=== PATIENT | female | born 1980 | race Caucasian/White ===

== ENCOUNTER 2022-04-28 06:56 | Emergency (ER) | payer MEDICARE, MEDICAID ==
[~2022-04-28] VITALS: Ht 177 cm; Wt 108.0 kg
[2022-04-28] MEDS ORDERED: ONDANSETRON 4 MG/2 ML (SDV) Z0FRAN IVP ONE (07:15)
[2022-04-28] MEDS ORDERED: LACTATED RINGERS 1,000 ML IV ONE ×2 (07:15→11:00)
[2022-04-28 07:20] LABS: BASOPHILS % (AUTO) 0 % (0-10); EOSINOPHILS # (AUTO) 0.1 10^3/uL (0.0-0.3); EOSINOPHILS % (AUTO) 1 % (0-10); HEMATOCRIT 43 % (35-52); HEMOGLOBIN 14.4 g/dL (11.5-16.0); LYMPHOCYTES # (AUTO) 1.6 10^3/uL (1.0-4.0); LYMPHOCYTES % (AUTO) 9 % (12-44); MEAN CORPUSCULAR HEMOGLOBIN 27 pg (25-34); MEAN CORPUSCULAR HGB CONC 34 g/dL (32-36); MEAN CORPUSCULAR VOLUME 82 fL (80-99); MEAN PLATELET VOLUME 11.1 fL (9.0-12.2); MONOCYTES # (AUTO) 0.6 10^3/uL (0.0-1.0); MONOCYTES % (AUTO) 3 % (0-12); NEUTROPHILS # (AUTO) 15.3 10^3/uL (1.8-7.8); NEUTROPHILS % (AUTO) 86 % (42-75); PLATELET COUNT 374 10^3/uL (130-400); WHITE BLOOD COUNT 17.7 10^3/uL (4.3-11.0)
[2022-04-28 07:34] LABS: ALBUMIN 4.3 GM/DL (3.2-4.5); POTASSIUM 3.5 MMOL/L (3.6-5.0)
[2022-04-28 07:36] LABS: TOTAL PROTEIN 8.4 GM/DL (6.4-8.2)
[2022-04-28 07:38] LABS: BILIRUBIN,TOTAL 0.4 MG/DL (0.1-1.0)
[2022-04-28 07:40] LABS: CREATININE SERUM 0.77 MG/DL (0.60-1.30)
[2022-04-28] MEDS ORDERED: PANTOPRAZOLE 40 MG (PROTONIX) VIAL IV ONE (07:45)
[2022-04-28] MEDS ORDERED: PROMETHAZINE INJ 25 MG/ML (PHENERGAN) AMP IVP ONE (07:45)
--- NOTE | 2022-04-28 07:51 | ED GI ---
General Chief Complaint: Abdominal/GI Problems Stated Complaint: NAUSEA,VOMITING Nursing Triage Note: ARRIVED VIA AMB TO ROOM 07 WITH N/V/D . PT HAS BEEN TAKING ZOFRAN AND PHENERGAN BUT CAN NOT KEEP IT DOWN. PT STATES HER STOOLS AND VOMIT ARE BLACK. RECENTLY DX WITH GASTROPARESIS A COUPLE OF WEEKS AGO AND A SCOPE WAS DONE AT [facility]. HAS AN APPT WITH A [place]STRO DR [place] . Source of Information: Patient, Family Exam Limitations: No Limitations History of Present Illness Date Seen by Provider: Apr 28, 2022 Time Seen by Provider: 07:13 Initial Comments This 41-year-old woman presents to the emergency room with 2 days of abdominal pain and vomiting. She is here with a male significant other. She has not been to this facility before and has a home address of [place], [place]. She seems emotionally and mentally distraught and is a poor historian regarding some aspects of her medical history, in particular the timing of events or work-ups. She also is unwilling to give us her surgical history. She denies any fever but has had hot and cold flashes associated with vomiting. She reports having blood in her emesis but not noting any blood in her bowel movements. She had a hard difficult stool this morning. She reports having a work-up performed at [facility] and having a positive gastric emptying study suggesting gastroparesis. She has a pending GI consultation at [facility]. She has had recurrent problems with abdominal pain and vomiting over the past year. This particular episode has been intense for the past 2 days. She has a medical marijuana card for the [facility], and her last use was 2 days ago. Patient is adamant that her GI issues are not caused by marijuana but cannot give a good reason for that assertion except that she quit marijuana for 1 week and continued to have symptoms. 08:54 - Patient is now calmer and able to provide a little better history. She presently lives in [place], [place] but is here in [place] visiting her boyfriend who lives here. She normally receives her health care at [facility] in [place] where she reportedly has been admitted 3 times in recent months and was last discharged about 3 weeks ago. She states upper endoscopy was performed during one of her recent admissions. She reports the only finding on endoscopy was "a lot of bile." Her primary care provider is Nadege Cole in [place]. She lists the following medications as her current prescriptions: Reglan Promethazine Zofran sublingual Dexilant Latuda Erythromycin She has not noted any correlation implicating any of these medications with her symptom onset. 11:16 - Patient provides further history stating that she has actually had problems with abdominal symptoms for several years. She reports abstaining from marijuana for 2 years while she was receiving pain management and did not have any relief of the GI symptoms while abstaining from marijuana for 2 years. She reports she has a referral pending with a inspector and unloader at [facility] in October 2022, and she also states a pending gastric stimulator implant. Allergies and Home Medications Allergies Coded Allergies: clindamycin (Verified Allergy, Unknown, 04/28/22) prochlorperazine (Verified Allergy, Unknown, 04/28/22) Patient Home Medication List Home Medication List Reviewed: Yes Famotidine (Pepcid) 20 Mg Tablet, 20 MG PO BID Prescribed by: JESS HSIEH on 04/28/22 1130 Scopolamine (Transderm-Scop) 1 Mg/3 Day Patch.td72, 1 EACH TD Q72H PRN for NAUSEA/VOMITING-3RD LINE Prescribed by: JESS HSIEH on 04/28/22 1130 Review of Systems Review of Systems Constitutional: see HPI EENTM: No Symptoms Reported Respiratory: No Symptoms Reported Cardiovascular: No Symptoms Reported Gastrointestinal: See HPI Genitourinary: No Symptoms Reported Musculoskeletal: no symptoms reported Skin: no symptoms reported Psychiatric/Neurological: See HPI Endocrine: No Symptoms Reported Hematologic/Lymphatic: No Symptoms Reported Past Vaebpih-Rzeafg-Hdqmnx Hx Patient Social History Tobacco Use?: Yes Smokeless Tobacco Frequency: Current Everyday User Substance use?: Yes Substance type: Marijuana Substance frequency: Daily Alcohol Use?: No Immunizations Up To Date Second COVID19 Vaccination Yared: UNKNOWN 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 Carbon 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: UNKNOWN Past Medical History Surgeries: Yes (Cervical cryotherapy) Abdominal (Hiatal hernia), Appendectomy, Gallbladder, Orthopedic (Ankle) Respiratory: No Cardiac: No Neurological: No : No Genitourinary: No Gastrointestinal: Yes (Stated history of "gastroparesis") Musculoskeletal: No Endocrine: No HEENT: No Cancer: No Psychosocial: Yes Bipolar Integumentary: No Physical Exam Vital Signs Vital Signs - First Documented 04/28/22 04/28/22 07:00 07:50 Temp 37.7 Pulse 56 Resp 16 B/P (MAP) 128/92 (104) Pulse Ox 97 O2 Delivery Room Air O2 Flow Rate 2.00 Capillary Refill : Less Than 3 Seconds Height/Weight/BMI Height: '" Weight: lbs. oz. kg; 34.00 BMI Method: General Appearance: WD/WN, moderate distress, obese HEENT: PERRL/EOMI, normal ENT inspection Neck: normal inspection Respiratory: lungs clear, normal breath sounds, no respiratory distress Cardiovascular: regular rate, rhythm, no edema, no murmur Gastrointestinal: normal bowel sounds, soft, tenderness (Left abdomen) Extremities: normal inspection, no pedal edema Neurologic/Psychiatric: no motor/sensory deficits, alert, other (Anxious, distracted, confused historian at times) Skin: normal color, warm/dry Progress/Results/Core Measures Results/Orders Lab Results Laboratory Tests Test 04/28/22 07:10 04/28/22 07:41 04/28/22 07:51 Range/Units White Blood Count 17.7 H 4.3-11.0 10^3/uL Red Blood Count 5.25 H 3.80-5.11 10^6/uL Hemoglobin 14.4 11.5-16.0 g/dL Hematocrit 43 35-52 % Mean Corpuscular Volume 82 80-99 fL Mean Corpuscular Hemoglobin 27 25-34 pg Mean Corpuscular Hemoglobin Concent 34 32-36 g/dL Red Cell Distribution Width 17.2 H 10.0-14.5 % Platelet Count 374 130-400 10^3/uL Mean Platelet Volume 11.1 9.0-12.2 fL Immature Granulocyte % (Auto) 1 % Neutrophils (%) (Auto) 86 H 42-75 % Lymphocytes (%) (Auto) 9 L 12-44 % Monocytes (%) (Auto) 3 0-12 % Eosinophils (%) (Auto) 1 0-10 % Basophils (%) (Auto) 0 0-10 % Neutrophils # (Auto) 15.3 H 1.8-7.8 10^3/uL Lymphocytes # (Auto) 1.6 1.0-4.0 10^3/uL Monocytes # (Auto) 0.6 0.0-1.0 10^3/uL Eosinophils # (Auto) 0.1 0.0-0.3 10^3/uL Basophils # (Auto) 0.0 0.0-0.1 10^3/uL Immature Granulocyte # (Auto) 0.1 0.0-0.1 10^3/uL Neutrophils % (Manual) 90 % Lymphocytes % (Manual) 8 % Monocytes % (Manual) 1 % Eosinophils % (Manual) 0 % Basophils % (Manual) 0 % Band Neutrophils 1 % Anisocytosis SLIGHT Target Cells SLIGHT Sodium Level 137 135-145 MMOL/L Potassium Level 3.5 L 3.6-5.0 MMOL/L Chloride Level 101 98-107 MMOL/L Carbon Dioxide Level 21 21-32 MMOL/L Anion Gap 15 H 5-14 MMOL/L Blood Urea Nitrogen 9 7-18 MG/DL Creatinine 0.77 0.60-1.30 MG/DL Estimat Glomerular Filtration Rate 99 BUN/Creatinine Ratio 12 Glucose Level 165 H 70-105 MG/DL Calcium Level 10.0 8.5-10.1 MG/DL Corrected Calcium 9.8 8.5-10.1 MG/DL Total Bilirubin 0.4 0.1-1.0 MG/DL Aspartate Amino Transf (AST/SGOT) 12 5-34 U/L Alanine Aminotransferase (ALT/SGPT) 21 0-55 U/L Alkaline Phosphatase 77 40-136 U/L Total Protein 8.4 H 6.4-8.2 GM/DL Albumin 4.3 3.2-4.5 GM/DL Lipase 10 8-78 U/L Serum Test, Qualitative NEGATIVE NEGATIVE Gastric Fluid Occult Blood POSITIVE H NEGATIVE Magnesium Level 1.6 1.6-2.4 MG/DL C-Reactive Protein High Sensitivity 0.96 H 0.00-0.50 MG/DL Serum Alcohol < 10 <10 MG/DL My Orders Orders - JESS JUNG MD Ondansetron Injection (Zofran Injectio (04/28/22 07:15) Cbc With Automated Diff (04/28/22 07:12) Comprehensive Metabolic Panel (04/28/22 07:12) Lipase (04/28/22 07:12) Ed Iv/Invasive Line Start (04/28/22 07:12) Lactated Ringers (Lr 1000 Ml Iv Solution (04/28/22 07:15) Manual Differential (04/28/22 07:10) Occult Blood,Gastric Fluid (04/28/22 07:40) Pantoprazole Injection (Protonix Injecti (04/28/22 07:45) Promethazine Injection (Phenergan Injec (04/28/22 07:45) Hs C Reactive Protein (04/28/22 07:40) Hcg,Qualitative Serum (04/28/22 07:40) Magnesium (04/28/22 07:40) Alcohol (04/28/22 07:50) Ekg Tracing (04/28/22 08:53) Droperidol Inj (Ed Only) (Inapsine Inj ( (04/28/22 09:15) Abdomen, Flat & Upright/Decub (04/28/22 09:13) Lactated Ringers (Lr 1000 Ml Iv Solution (04/28/22 11:00) Scopolamine Patch (Transderm-Scop Patch) (04/28/22 11:30) Medications Given in ED Current Medications Medications Dose Ordered Sig/Brandon Route Start Time Stop Time Status Last Admin Dose Admin Droperidol 0.625 mg ONCE ONCE IV 04/28/22 09:15 04/28/22 09:16 DC 04/28/22 09:23 0.625 MG Lactated Ringer's 1,000 ml @ 0 mls/hr Q0M ONCE IV 04/28/22 11:00 04/28/22 11:01 DC 04/28/22 11:09 1,000 MLS/HR Scopolamine 1.5 mg ONCE ONCE TD 04/28/22 11:30 04/28/22 11:31 DC 04/28/22 11:32 1.5 MG Vital Signs/I&O 04/28/22 04/28/22 04/28/22 07:00 07:50 12:20 Temp 37.7 Pulse 56 59 Resp 16 16 B/P (MAP) 128/92 (104) 136/98 Pulse Ox 97 88 98 O2 Delivery Room Air Nasal Cannula Room Air O2 Flow Rate 2.00 Blood Pressure Mean: 104 Progress Progress Note #1: Time: 07:59 Progress Note Patient was interviewed and examined. She is being treated with IV fluids, Zofran, Phenergan, and Protonix. Emesis was sent for gastric occult blood testing. Labs are pending. Progress Note #2: Time: 08:57 Progress Note Patient is [place] now and able to provide additional history. She is still complaining of refractory nausea. I inquired if she had ever received droperidol. She does not recall receiving it to her knowledge. She has received Haldol which she said was not effective. If not contraindicated by EKG findings, I will order droperidol. Progress Note #3: Time: 11:17 Progress Note Patient is now tolerating ice chips and stated droperidol helped her significantly. Vital signs are stable. She is receiving a second liter of IV fluid and discharge is anticipated. Scopolamine patch is being applied for longer acting relief. Initial ECG Impression Date: Apr 28, 2022 Initial ECG Impression Time: 09:00 Initial ECG Rate: 54 Initial ECG Rhythm: S.Anders Comment Sinus rhythm with borderline irregular bradycardia. No ST elevation or depression. No abnormal intervals or axis deviation. Diagnostic Imaging Diagonstic Imaging: Xray Plain Films/CT/US/NM/MRI: abdomen, pelvis Comments Abdominal x-rays viewed by me and report reviewed. See report below: NAME: KIANA PATEL [facility] REC#: [id number] PT STATUS: REG ER : 1980 PHYSICIAN: JESS JUNG MD ADMIT DATE: 04/28/22/ER Signed Date of Exam:04/28/22 ABDOMEN, FLAT & UPRIGHT/DECUB REASON FOR EXAM: Abdominal pain. Nausea and vomiting. COMPARISON: None TECHNIQUE: 3 views of the abdomen FINDINGS: The bowel gas pattern is nondistended. No large collection of free intraperitoneal air is seen. Scattered small amounts of gas and fecal material are present in the colon. No abnormal extraosseous calcifications are present. The osseous structures are age-appropriate. The gallbladder surgically absent. Essure clips are seen in the pelvis. IMPRESSION: No evidence of bowel obstruction or large collection of free intraperitoneal air. Dictated by: Dictated on workstation # [id number] Dict: 04/28/22951 Trans: 04/28/221002 [facility] [id number] Interpreted by: COLT BROOKS DO Electronically signed by: COLT BROOKS DO 04/28/22 1003 Departure Impression Primary Impression: Left sided abdominal pain Additional Impressions: Nausea & vomiting Qualified Codes: R11.2 - Nausea with vomiting, unspecified Hematemesis Qualified Codes: K92.0 - Hematemesis Disposition: 01 HOME, SELF-CARE Condition: Improved Departure-Patient Inst. Decision time for Depature: 11:23 Referrals: NO,LOCAL PHYSICIAN (PCP/Family) Primary Care Physician Patient Instructions: Abdominal Pain, Adult ED, Nausea and Vomiting, Adult Add. Discharge Instructions: Adhere to a noncarbonated clear liquid diet for the next 24 hours. Then gradually advance your diet with small quantities of bland food as tolerated. Add Pepcid (famotidine) to your medication management as prescribed. Discussed this with your inspector and unloader and your primary care provider soon as you are able. Continue using sublingual Zofran for primary nausea control. You may add the scopolamine patch as prescribed for added and nausea relief. Avoid the following: Eating large meals, eating close to bedtime, caffeine, carbonation, chocolate, citrus fruits and juices, tomato products, mints, tobacco, alcohol, marijuana products, fatty/greasy foods, NSAID medications such as ibuprofen or naproxen, spicy foods, or anything else you know irritates your stomach. Return to care if you have worsening symptoms despite following these instructions. All discharge instructions reviewed with patient and/or family. Voiced understanding. Scripts Famotidine (Pepcid) 20 Mg Tablet 20 MG PO BID, #60 TAB Prov: JESS JUNG MD 04/28/22 Scopolamine (Transderm-Scop) 1 Mg/3 Day Patch.td72 1 EACH TD Q72H PRN for NAUSEA/VOMITING-3RD LINE, #2 PATCH Prov: JESS JUNG MD 04/28/22 JESS JUNG MD Apr 28, 2022 07:51
[2022-04-28 07:52] LABS: OCCULT BLOOD,GASTRIC FLUID POSITIVE (NEGATIVE)
[2022-04-28 08:09] LABS: BAND NEUTROPHILS 1 %; BASOPHILS % (MANUAL) 0 %; EOSINOPHILS % (MANUAL) 0 %; LYMPHOCYTES % (MANUAL) 8 %; MONOCYTES % (MANUAL) 1 %; NEUTROPHILS % (MANUAL) 90 %
[2022-04-28 08:10] LABS: ANISOCYTOSIS SLIGHT; TARGET CELLS SLIGHT
[2022-04-28 08:22] LABS: MAGNESIUM 1.6 MG/DL (1.6-2.4)
[2022-04-28] MEDS ORDERED: DROPERIDOL 5 MG/2 ML (INAPSINE) ED ONLY! IV ONE (09:15)
--- NOTE | 2022-04-28 09:57 | Diagnostic Imaging Report ---
REASON FOR EXAM: Abdominal pain. Nausea and vomiting. COMPARISON: None TECHNIQUE: 3 views of the abdomen FINDINGS: The bowel gas pattern is nondistended. No large collection of free intraperitoneal air is seen. Scattered small amounts of gas and fecal material are present in the colon. No abnormal extraosseous calcifications are present. The osseous structures are age-appropriate. The gallbladder surgically absent. Essure clips are seen in the pelvis. IMPRESSION: No evidence of bowel obstruction or large collection of free intraperitoneal air. Dictated by: Dictated on workstation # [id number]
[2022-04-28] MEDS ORDERED: FAMO-119 PO (11:30)
[2022-04-28] MEDS ORDERED: SCOPOLAMINE 1.5 MG (TRANSDERM-SCOP) PATCH TD ONE (11:30)
[2022-04-28] MEDS ORDERED: SCOP1PAT10 TD (11:30)
[2022-04-28 12:20] VITALS: BP 136/98
== END 2022-04-28 12:20 | disposition home or self-care (01) ==
LOC: ER 07:01
DX: K92.0 Hematemesis (principal); R10.9 Unspecified abdominal pain; E66.9 Obesity, unspecified; F17.290 Nicotine dependence, other tobacco product, uncomplicated; Z90.49 Acquired absence of other specified parts of digestive tract; Z68.34 Body mass index [BMI] 34.0-34.9, adult
CPT/HCPCS: 74019; 80053; 82271; 83690; 83735; 84703; 85007; 85027; 86141; 93005; 99284; G0480; 36415; 80320

== ENCOUNTER 2022-05-03 06:42 | Emergency (ER) | payer MEDICARE, MEDICAID ==
[~2022-05-03] VITALS: Ht 177.8 cm; Wt 108.9 kg
[~2022-05-03 06:42] MED LIST: FAMO-119 PO; SCOP1PAT10 TD
--- NOTE | 2022-05-03 06:58 | ED GI ---
General Chief Complaint: Abdominal/GI Problems Stated Complaint: VOMITING Source of Information: Patient Exam Limitations: No Limitations History of Present Illness Date Seen by Provider: May 03, 2022 Time Seen by Provider: 06:52 Initial Comments Patient is a 41-year-old female who presents to the emergency room with a chief complaint of severe nausea and vomiting, epigastric discomfort. She states she has a history of gastroparesis. Her mother is with her and states that she has had this problem developing over the last 3 months with multiple visits to the emergency department for treatment. She was seen here in the ED 5 days ago. She was given scopolamine patches. Mother states that these worked well but when they exchange the patch she started having nausea and vomiting again. She denies fevers or chills. She complains of extreme nausea. She states she has had a history of appendectomy and cholecystectomy. Denies black or bloody stools. States she did urinate this morning, no dysuria. Mother states that she has been "heaving" every 15 minutes since 1am. Mother also states that she does have a medical marijuana card. She did smoke marijuana yesterday. I educated the patient that marijuana can sometimes exacerbate nausea and vomiting. All other review of systems reviewed and negative except as stated. Timing/Duration: Constant Severity/Quality: Severe, Cramping Location: Epigastric Radiation: No Radiation Activities at Onset: None Modifying Factors: Worsens With Movement Associated Symptoms: Heartburn, Nausea/Vomiting Allergies and Home Medications Allergies Coded Allergies: clindamycin (Verified Allergy, Unknown, 04/28/22) prochlorperazine (Verified Allergy, Unknown, 04/28/22) Patient Home Medication List Home Medication List Reviewed: Yes Famotidine (Pepcid) 20 Mg Tablet, 20 MG PO BID Prescribed by: JESS HSIEH on 04/28/22 1130 Scopolamine (Transderm-Scop) 1 Mg/3 Day Patch.td72, 1 EACH TD Q72H PRN for NAUSEA/VOMITING-3RD LINE Prescribed by: JESS HSIEH on 04/28/22 1130 Review of Systems Review of Systems Constitutional: see HPI, malaise EENTM: No Symptoms Reported Respiratory: No Symptoms Reported Cardiovascular: No Symptoms Reported Gastrointestinal: Abdominal Pain, Nausea, Vomiting Genitourinary: No Symptoms Reported Musculoskeletal: no symptoms reported Skin: no symptoms reported Psychiatric/Neurological: Anxiety All Other Systems Reviewed Negative Unless Noted: Yes Past Xtnqfie-Kqhhmy-Bbyxdb Hx Patient Social History Tobacco Use?: No Use of E-Cig and/or Vaping dev: Yes E-Cig or Vaping type used: Nicotine Substance use?: Yes Substance type: Marijuana Additional substance use comme: Pt reports a medical marijuana card Alcohol Use?: No Pt feels they are or have been: No Immunizations Up To Date Second COVID19 Vaccination Yared: UNKNOWN Past Medical History Surgery/Hospitalization HX: GI scopes, Gastroparesis, Hiatal hernia Surgeries: Yes (Cervical cryotherapy) Abdominal, Appendectomy, Gallbladder, Orthopedic Respiratory: No Cardiac: No Neurological: No Genitourinary: No Gastrointestinal: Yes (Stated history of "gastroparesis") Musculoskeletal: No Endocrine: No HEENT: No Cancer: No Psychosocial: Yes Bipolar Integumentary: No Physical Exam Vital Signs Vital Signs - First Documented 05/03/22 06:51 Temp 36.9 Pulse 53 Resp 24 B/P (MAP) 161/121 (134) Pulse Ox 98 O2 Delivery Room Air Capillary Refill : Height/Weight/BMI Height: '" Weight: lbs. oz. kg; 34.00 BMI Method: General Appearance: WD/WN, moderate distress HEENT: PERRL/EOMI, pharynx normal Neck: supple Respiratory: lungs clear, normal breath sounds, no respiratory distress, no accessory muscle use Cardiovascular: regular rate, rhythm, no murmur Gastrointestinal: soft, tenderness (Mild epigastric tenderness) Extremities: normal range of motion, non-tender, normal inspection, normal capillary refill Neurologic/Psychiatric: alert, other (Appears anxious, distressed; disheveled with vomit on the front of her shirt) Skin: pallor, other (Clammy/diaphoretic) Progress/Results/Core Measures Results/Orders Lab Results Laboratory Tests Test 05/03/22 06:57 Range/Units White Blood Count 14.3 H 4.3-11.0 10^3/uL Red Blood Count 5.34 H 3.80-5.11 10^6/uL Hemoglobin 14.7 11.5-16.0 g/dL Hematocrit 45 35-52 % Mean Corpuscular Volume 84 80-99 fL Mean Corpuscular Hemoglobin 28 25-34 pg Mean Corpuscular Hemoglobin Concent 33 32-36 g/dL Red Cell Distribution Width 17.0 H 10.0-14.5 % Platelet Count 339 130-400 10^3/uL Mean Platelet Volume 11.6 9.0-12.2 fL Immature Granulocyte % (Auto) 1 % Neutrophils (%) (Auto) 82 H 42-75 % Lymphocytes (%) (Auto) 14 12-44 % Monocytes (%) (Auto) 3 0-12 % Eosinophils (%) (Auto) 0 0-10 % Basophils (%) (Auto) 0 0-10 % Neutrophils # (Auto) 11.7 H 1.8-7.8 10^3/uL Lymphocytes # (Auto) 2.0 1.0-4.0 10^3/uL Monocytes # (Auto) 0.5 0.0-1.0 10^3/uL Eosinophils # (Auto) 0.1 0.0-0.3 10^3/uL Basophils # (Auto) 0.0 0.0-0.1 10^3/uL Immature Granulocyte # (Auto) 0.1 0.0-0.1 10^3/uL Neutrophils % (Manual) 81 % Lymphocytes % (Manual) 16 % Monocytes % (Manual) 3 % Toxic Granulation 1+ Anisocytosis SLIGHT Microcytosis SLIGHT Sodium Level 139 135-145 MMOL/L Potassium Level 4.0 3.6-5.0 MMOL/L Chloride Level 105 98-107 MMOL/L Carbon Dioxide Level 20 L 21-32 MMOL/L Anion Gap 14 5-14 MMOL/L Blood Urea Nitrogen 6 L 7-18 MG/DL Creatinine 0.77 0.60-1.30 MG/DL Estimat Glomerular Filtration Rate 99 BUN/Creatinine Ratio 8 Glucose Level 138 H 70-105 MG/DL Calcium Level 9.7 8.5-10.1 MG/DL Corrected Calcium 9.6 8.5-10.1 MG/DL Magnesium Level 1.9 1.6-2.4 MG/DL Total Bilirubin 0.7 0.1-1.0 MG/DL Aspartate Amino Transf (AST/SGOT) 18 5-34 U/L Alanine Aminotransferase (ALT/SGPT) 20 0-55 U/L Alkaline Phosphatase 83 40-136 U/L Total Protein 8.1 6.4-8.2 GM/DL Albumin 4.1 3.2-4.5 GM/DL Lipase 13 8-78 U/L Serum Test, Qualitative NEGATIVE NEGATIVE My Orders Orders - NORMAN HARRELL MD Ed Iv/Invasive Line Start (05/03/22 06:58) Cbc With Automated Diff (05/03/22 06:58) Comprehensive Metabolic Panel (05/03/22 06:58) Lipase (05/03/22 06:58) Hcg,Qualitative Serum (05/03/22 06:58) Lactated Ringers (Lr 1000 Ml Iv Solution (05/03/22 07:00) Droperidol Inj (Ed Only) (Inapsine Inj ( (05/03/22 07:00) Diphenhydramine Injection (Benadryl Inje (05/03/22 07:00) Ekg Tracing (05/03/22 06:58) Magnesium (05/03/22 06:58) Manual Differential (05/03/22 06:57) Lactated Ringers (Lr 1000 Ml Iv Solution (05/03/22 08:15) Promethazine Injection (Phenergan Injec (05/03/22 08:15) Pantoprazole Injection (Protonix Injecti (05/03/22 08:15) Lorazepam Tablet (Ativan Tablet) (05/03/22 09:44) Dicyclomine Injection (Bentyl Injection) (05/03/22 09:48) Medications Given in ED Vital Signs/I&O 05/03/22 05/03/22 06:51 10:29 Temp 36.9 36.9 Pulse 53 53 Resp 24 24 B/P (MAP) 161/121 (134) 129/80 Pulse Ox 98 98 O2 Delivery Room Air Room Air Progress Progress Note : Time: 09:33 Progress Note Patient had been resting comfortably when I went in the room at last check - for about an hour. No loud retching or issues. Then when I walked in, she stated she felt no better at all. Became up set when I indicated she did not have any findings leading us to believe she would need to be hospitalized, stating "if you send me home, I will just turn around and come right back." Mother states that she has had conversations with her about stopping THC, but the patient argues. She also tells me the patient had a "Mcchicken sandwich" yesterday before the onset of symptoms earlier this morning. At this point patient has had droperidol and benadryl; as well as 25mg of Phenergan in a 2nd liter of IVF (LR). Her labs are reassuring - no hypokalemia. WBC are decreased from a few days ago. SHe has no point tenderness in her abdomen. No fever. No clincal or objective findings concerning for sepsis. I think at this point I will give her some sublingual ativan and d/c to home. I have advised both the patient and her mother, we do not have GI capabilities here at [facility]. Mom states the patient has been referred to , but her appointment is not until October of 2022. Return precautions provided. Initial ECG Impression Date: May 03, 2022 Initial ECG Impression Time: 07:26 Initial ECG Rate: 44 Initial ECG Rhythm: S.Anders Initial ECG Intervals: Normal Initial ECG Impression: Normal Initial ECG Comparisson: Unchanged Departure Impression Primary Impression: Nausea and vomiting Qualified Codes: R11.2 - Nausea with vomiting, unspecified Additional Impressions: Tetrahydrocannabinol (THC) dependence gastroparesis by patient history Disposition: 01 HOME, SELF-CARE Condition: Stable Departure-Patient Inst. Decision time for Depature: 09:48 Referrals: NO,LOCAL PHYSICIAN (PCP/Family) Primary Care Physician Add. Discharge Instructions: You should follow up with Dr Presley regularly until you have your appointment in , as well as your family doctor. Small frequent bland meals throughout the day. Target 6 small meals scattered throughout the day. Drink plenty of fluids to stay well hydrated. (you are actually not dehydrated now). Continue the nausea medications you have been prescribed at home. Stop smoking marijuana - this will help your nausea and vomiting not be so severe. Return to the Emergency Department for fever with these worsening symptoms, or any other new, emergent, concerning complaints. All discharge instructions reviewed with patient and/or family. Voiced understanding. NORMAN HARRELL MD May 03, 2022 06:58
[2022-05-03] MEDS ORDERED: DROPERIDOL 5 MG/2 ML (INAPSINE) ED ONLY! IV ONE (07:00)
[2022-05-03] MEDS ORDERED: diphenhydrAMINE 50 MG/ML INJ (BENADRYL) IVP ONE (07:00)
[2022-05-03 07:08] LABS: BASOPHILS % (AUTO) 0 % (0-10); EOSINOPHILS # (AUTO) 0.1 10^3/uL (0.0-0.3); EOSINOPHILS % (AUTO) 0 % (0-10); HEMATOCRIT 45 % (35-52); HEMOGLOBIN 14.7 g/dL (11.5-16.0); LYMPHOCYTES % (AUTO) 14 % (12-44); MEAN CORPUSCULAR HEMOGLOBIN 28 pg (25-34); MEAN CORPUSCULAR HGB CONC 33 g/dL (32-36); MEAN CORPUSCULAR VOLUME 84 fL (80-99); MEAN PLATELET VOLUME 11.6 fL (9.0-12.2); MONOCYTES # (AUTO) 0.5 10^3/uL (0.0-1.0); MONOCYTES % (AUTO) 3 % (0-12); NEUTROPHILS # (AUTO) 11.7 10^3/uL (1.8-7.8); NEUTROPHILS % (AUTO) 82 % (42-75); PLATELET COUNT 339 10^3/uL (130-400); WHITE BLOOD COUNT 14.3 10^3/uL (4.3-11.0)
[2022-05-03 07:15] LABS: ALBUMIN 4.1 GM/DL (3.2-4.5)
[2022-05-03 07:17] LABS: CALCIUM 9.7 MG/DL (8.5-10.1)
[2022-05-03 07:18] LABS: TOTAL PROTEIN 8.1 GM/DL (6.4-8.2)
[2022-05-03] MEDS: LACTATED RINGERS 1,000 ML IV SCH ×5 (07:18→08:23)
[2022-05-03 07:20] LABS: BILIRUBIN,TOTAL 0.7 MG/DL (0.1-1.0)
[2022-05-03 07:22] LABS: CREATININE SERUM 0.77 MG/DL (0.60-1.30)
[2022-05-03 07:24] LABS: MAGNESIUM 1.9 MG/DL (1.6-2.4)
[2022-05-03 07:43] LABS: ANISOCYTOSIS SLIGHT; LYMPHOCYTES % (MANUAL) 16 %; MICROCYTOSIS SLIGHT; MONOCYTES % (MANUAL) 3 %; NEUTROPHILS % (MANUAL) 81 %; TOXIC GRANULATION/VACUOLAZATIO 1+
[2022-05-03] MEDS ORDERED: PANTOPRAZOLE 40 MG (PROTONIX) VIAL IV ONE (08:15)
[2022-05-03] MEDS ORDERED: PROMETHAZINE INJ 25 MG/ML (PHENERGAN) AMP IVP ONE (08:15)
[2022-05-03] MEDS ORDERED: LORazepam 0.5 MG (ATIVAN) TABLET SL STA (09:44)
[2022-05-03] MEDS ORDERED: DICYCLOMINE 10 MG/ML (BENTYL) 2 ML AMP IM STA (09:48)
[2022-05-03 10:29] VITALS: BP 129/80
== END 2022-05-03 10:29 | disposition home or self-care (01) ==
LOC: EDUNIT# 06:42 → ER 06:44
DX: K31.84 Gastroparesis (principal); F12.20 Cannabis dependence, uncomplicated; F17.290 Nicotine dependence, other tobacco product, uncomplicated; Z90.49 Acquired absence of other specified parts of digestive tract; Z28.310 Unvaccinated for COVID-19
CPT/HCPCS: 36415; 80053; 83690; 83735; 84703; 85007; 85027; 93005; 96361; 96372; 96374; 96375

== ENCOUNTER 2022-08-06 22:44 | Emergency (ER) | payer MEDICARE, MEDICAID ==
[~2022-08-06] VITALS: Ht 178 cm; Wt 118.0 kg
[2022-08-06] MEDS ORDERED: ONDANSETRON 4 MG/2 ML (SDV) Z0FRAN IVP ONE (23:00)
[2022-08-06] MEDS ORDERED: LACTATED RINGERS 1,000 ML IV ONE (23:00)
[2022-08-06 23:03] LABS: BASOPHILS % (AUTO) 0 % (0-10); EOSINOPHILS % (AUTO) 0 % (0-10); HEMATOCRIT 41 % (35-52); HEMOGLOBIN 13.9 g/dL (11.5-16.0); LYMPHOCYTES # (AUTO) 2.2 10^3/uL (1.0-4.0); LYMPHOCYTES % (AUTO) 13 % (12-44); MEAN CORPUSCULAR HEMOGLOBIN 28 pg (25-34); MEAN CORPUSCULAR HGB CONC 34 g/dL (32-36); MEAN CORPUSCULAR VOLUME 82 fL (80-99); MEAN PLATELET VOLUME 11.1 fL (9.0-12.2); MONOCYTES # (AUTO) 1.1 10^3/uL (0.0-1.0); MONOCYTES % (AUTO) 6 % (0-12); NEUTROPHILS # (AUTO) 13.3 10^3/uL (1.8-7.8); NEUTROPHILS % (AUTO) 80 % (42-75); PLATELET COUNT 421 10^3/uL (130-400); WHITE BLOOD COUNT 16.6 10^3/uL (4.3-11.0)
--- NOTE | 2022-08-06 23:03 | ED GI ---
General Chief Complaint: Abdominal/GI Problems Stated Complaint: NAUSEA, VOMITING Nursing Triage Note: PT AMB TO ED BY POV WITH C/O ABD PAIN AND N/V/D X 24 HRS. PT REPORTS SHE HAS TAKEN ZOFRAN AND PROMETHAZINE WITH NO RELIEF. DENIES FEVER. PT HAS HX GASTROPARESIS. Source of Information: Patient History of Present Illness Date Seen by Provider: Aug 06, 2022 Time Seen by Provider: 22:48 Initial Comments PT ARRIVES VIA POV WITH BOYFRIEND C/O NAUSEA/VOMITING/DIARRHEA AND ABDOMINAL PAIN FOR THE LAST 24 HOURS THIS IS A CHRONIC PROBLEM AND HAS BEEN DX WITH GASTROPARESIS, ACCORDING TO FARTUN PEGUERO. PT STATES SHE HAS "VOMITED AND HAD DIARRHEA EVERY HOUR FOR THE LAST 24 HOURS" --THEN ON QUESTIONING ABOUT HOW MANY TIMES SHE HAS VOMITED OR HAD DIARRHEA, SHE REPORTS SHE HAS VOMITED 6 TIMES, AND HAD DIARRHEA TWICE. SHE STATES HER STOOLS WERE BLOODY. 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 SHE DENIES ANY MEDICATION CHANGES, BUT SHE HAS NOT BEEN TAKING HER TOPAMAX LATELY--PRESCRIBED FOR SEIZURES/PSEUDOSEIZURES. SHE HAS HAD PRIOR CHOLECYSTECTOMY AND APPENDECTOMY SHE DENIES ANY SICK CONTACTS OR SUSPICIOUS FOODS LMP--3 WEEKS AGO, NORMAL. HAS ESSURE IUD IN PLACE. SHE SMOKES CIGARETTES, AND ALSO VAPES, IN ADDITION TO SMOKING MARIJUANA. SHE DENIES ALCOHOL USE SHE STATES SHE WAS AT [facility] IN [place] A MONTH AGO FOR THE SAME THING PT LIVES IN [place], AND HER REGULAR MEDICAL CARE IS WITH [facility]. SHE HAS HAD COVID VACCINE X 3, AND NO FLU VACCINE. PCP: [facility] IN [place] GI: IN [place] Allergies and Home Medications Allergies Coded Allergies: clindamycin (Verified Allergy, Unknown, 04/28/22) prochlorperazine (Verified Allergy, Unknown, 04/28/22) Patient Home Medication List Home Medication List Reviewed: Yes Famotidine (Pepcid) 20 Mg Tablet, 20 MG PO BID Prescribed by: JESS HSIEH on 04/28/22 1130 Lactobacillus Acidophilus (Acidophilus Lactobacillus) 1 Billion Unit/Gram Powder, 1 GM MC QID Prescribed by: SÁNCHEZ HOGAN on 08/07/22146 Pantoprazole Sodium (Protonix) 40 Mg Tablet.dr, 40 MG PO DAILY Prescribed by: SÁNCHEZ HOGAN on 08/07/22146 Scopolamine (Transderm-Scop) 1 Mg/3 Day Patch.td72, 1 EACH TD Q72H PRN for NAUSEA/VOMITING-3RD LINE Prescribed by: JESS HSIEH on 04/28/22 1130 Scopolamine (Transderm-Scop) 1 Mg/3 Day Patch.td72, 1 EACH TD Q72H Prescribed by: SÁNCHEZ HOGAN on 08/07/22146 Review of Systems Review of Systems Constitutional: no symptoms reported EENTM: No Symptoms Reported Respiratory: No Symptoms Reported Cardiovascular: No Symptoms Reported Gastrointestinal: See HPI, Abdominal Pain, Diarrhea, Nausea, Poor Appetite, Poor Fluid Intake, Rectal Bleeding, Vomiting Genitourinary: No Symptoms Reported Musculoskeletal: no symptoms reported Skin: no symptoms reported Psychiatric/Neurological: No Symptoms Reported Endocrine: No Symptoms Reported Hematologic/Lymphatic: No Symptoms Reported Past Zwqixbh-Pkhnai-Tcrnbg Hx Patient Social History Tobacco Use?: Yes Tobacco type used: Cigarettes Smoking Status: Current Everyday Smoker Use of E-Cig and/or Vaping dev: Yes E-Cig or Vaping type used: Nicotine Use of E-Cig and/or Vaping Chay: Current Everyday User Substance use?: Yes Substance type: Marijuana Substance frequency: Couple times a week Alcohol Use?: No Pt feels they are or have been: No Immunizations Up To Date Influenza Vaccine Up-to-Date: No; Not Current First/Initial COVID19 Vaccinat: UNKNOWN Second COVID19 Vaccination Yared: UNKNOWN Third COVID19 Vaccination Date: UNKNOWN Past Medical History Surgery/Hospitalization HX: GI scopes, Gastroparesis, Hiatal hernia, APPENDECTOMY, CHOLECYSTECTOMY, SEIZURE DISORDER, BIPOLAR, ANXIETY, CONVERSION DISORDER, NEUROPATHY Surgeries: Yes (Cervical cryotherapy; LEFT ANKLE SURGERY X 3; ENDOSCOPIES) Appendectomy, Gallbladder, Orthopedic Respiratory: No Cardiac: No Neurological: Yes (NEUROPATHY IN LEGS; SEIZURES VS PSEUDOSEIZURES) Neuropathy, Seizure Disorder Last Menstrual Period: Jul 16, 2022 Hx : 4 Hx Para: 4 Hx Total # of Abortions (Sp): 0 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 oz. kg; 37.00 BMI Method: General Appearance: WD/WN, no apparent distress, obese, other (DRAMATIC, ANXIOUS) HEENT: No scleral icterus (R), No scleral icterus (L) Neck: normal inspection Respiratory: normal breath sounds, no respiratory distress, no accessory muscle use Cardiovascular: regular rate, rhythm, no murmur Gastrointestinal: normal bowel sounds, soft, no organomegaly, no pulsatile mass, tenderness (MILD SUPRAPUBIC TENDERNESS) Extremities: normal inspection, no pedal edema, no calf tenderness, normal capillary refill Back: normal inspection, no CVA tenderness Neurologic/Psychiatric: development mechanic II-XII nml as tested, no motor/sensory deficits, alert, oriented x 3 Skin: normal color, warm/dry Focused Exam Sepsis Stage: Ruled Out Reason for ruling out sepsis: DOES NOT MEET CRITERIA Possible Source: GI Tract/Intra-Abdominal Lactate Level 08/06/22 23:20: Lactic Acid Level 1.87 Time of Focused Exam: 00:01 Respiratory: Normal Breath Sounds, No Accessory Muscle Use, No Respiratory Distress Cardiovascular: Regular Rate, Rhythm, No Murmur Capillary Refill: Less Than 3 Seconds Skin: normal color, warm/dry Lactic Acid Level Laboratory Tests Test 08/06/22 23:20 Lactic Acid Level 1.87 MMOL/L (0.50-2.00) Within 3hrs of presentation: Admin fluids, Blood cultures prior to ABX's, Focus exam, Lactate level, Other (NO ANTIBIOTICS GIVEN, PT DOES NOT APPEAR TO BE SEPTIC OR HAVE ANY INFECTION. ) Progress/Results/Core Measures Results/Orders Lab Results Laboratory Tests Test 08/06/22 22:54 08/06/22 23:20 08/07/22 01:12 Range/Units White Blood Count 16.6 H 4.3-11.0 10^3/uL Red Blood Count 4.98 3.80-5.11 10^6/uL Hemoglobin 13.9 11.5-16.0 g/dL Hematocrit 41 35-52 % Mean Corpuscular Volume 82 80-99 fL Mean Corpuscular Hemoglobin 28 25-34 pg Mean Corpuscular Hemoglobin Concent 34 32-36 g/dL Red Cell Distribution Width 16.5 H 10.0-14.5 % Platelet Count 421 H 130-400 10^3/uL Mean Platelet Volume 11.1 9.0-12.2 fL Immature Granulocyte % (Auto) 0 % Neutrophils (%) (Auto) 80 H 42-75 % Lymphocytes (%) (Auto) 13 12-44 % Monocytes (%) (Auto) 6 0-12 % Eosinophils (%) (Auto) 0 0-10 % Basophils (%) (Auto) 0 0-10 % Neutrophils # (Auto) 13.3 H 1.8-7.8 10^3/uL Lymphocytes # (Auto) 2.2 1.0-4.0 10^3/uL Monocytes # (Auto) 1.1 H 0.0-1.0 10^3/uL Eosinophils # (Auto) 0.0 0.0-0.3 10^3/uL Basophils # (Auto) 0.0 0.0-0.1 10^3/uL Immature Granulocyte # (Auto) 0.1 0.0-0.1 10^3/uL Neutrophils % (Manual) 86 % Lymphocytes % (Manual) 11 % Monocytes % (Manual) 3 % Blood Morphology Comment NORMAL Sodium Level 137 135-145 MMOL/L Potassium Level 4.1 3.6-5.0 MMOL/L Chloride Level 97 L 98-107 MMOL/L Carbon Dioxide Level 21 21-32 MMOL/L Anion Gap 19 H 5-14 MMOL/L Blood Urea Nitrogen 11 7-18 MG/DL Creatinine 0.82 0.60-1.30 MG/DL Estimat Glomerular Filtration Rate 92 BUN/Creatinine Ratio 13 Glucose Level 133 H 70-105 MG/DL Calcium Level 9.9 8.5-10.1 MG/DL Corrected Calcium 9.6 8.5-10.1 MG/DL Magnesium Level 1.9 1.6-2.4 MG/DL Total Bilirubin 0.5 0.1-1.0 MG/DL Aspartate Amino Transf (AST/SGOT) 29 5-34 U/L Alanine Aminotransferase (ALT/SGPT) 27 0-55 U/L Alkaline Phosphatase 80 40-136 U/L Total Protein 9.2 H 6.4-8.2 GM/DL Albumin 4.4 3.2-4.5 GM/DL Amylase Level 95 25-125 U/L Lipase 11 8-78 U/L Serum Test, Qualitative NEGATIVE NEGATIVE Acetaminophen Level < 10 L 10-30 UG/ML Serum Alcohol < 10 <10 MG/DL Influenza Type A (RT-PCR) Not Detected Not Detecte Influenza Type B (RT-PCR) Not Detected Not Detecte SARS-CoV-2 RNA (RT-PCR) Not Detected Not Detecte Lactic Acid Level 1.87 0.50-2.00 MMOL/L Urine Color YELLOW Urine Clarity SL CLOUDY Urine pH 8.0 5-9 Urine Specific [place] <=1.005 1.016-1.022 Urine Protein 1+ H NEGATIVE Urine Glucose (UA) NEGATIVE NEGATIVE Urine Ketones NEGATIVE NEGATIVE Urine Nitrite NEGATIVE NEGATIVE Urine Bilirubin NEGATIVE NEGATIVE Urine Urobilinogen 0.2 < = 1.0 MG/DL Urine Leukocyte Esterase NEGATIVE NEGATIVE Urine RBC (Auto) NEGATIVE NEGATIVE Urine RBC NONE /HPF Urine WBC NONE /HPF Urine Crystals NONE /LPF Urine Bacteria NEGATIVE /HPF Urine Casts NONE /LPF Urine Mucus NEGATIVE /LPF Urine Culture Indicated CULTURE PENDING Urine Opiates Screen NEGATIVE NEGATIVE Urine Oxycodone Screen NEGATIVE NEGATIVE Urine Methadone Screen NEGATIVE NEGATIVE Urine Propoxyphene Screen NEGATIVE NEGATIVE Urine Barbiturates Screen NEGATIVE NEGATIVE Ur Tricyclic Antidepressants Screen NEGATIVE NEGATIVE Urine Phencyclidine Screen NEGATIVE NEGATIVE Urine Amphetamines Screen NEGATIVE NEGATIVE Urine Methamphetamines Screen NEGATIVE NEGATIVE Urine Benzodiazepines Screen NEGATIVE NEGATIVE Urine Cocaine Screen NEGATIVE NEGATIVE Urine Cannabinoids Screen POSITIVE H NEGATIVE My Orders Orders - SÁNCHEZ HOGAN DO Ed Iv/Invasive Line Start (08/06/22 22:49) Monitor-Rhythm Ecg Trace Only (08/06/22 22:49) Amylase (08/06/22 22:49) Cbc With Automated Diff (08/06/22 22:49) Comprehensive Metabolic Panel (08/06/22 22:49) Hcg,Qualitative Serum (08/06/22 22:49) Lipase (08/06/22 22:49) Magnesium (08/06/22 22:49) Ua Culture If Indicated (08/06/22 22:49) Ed Iv/Invasive Line Start (08/06/22 22:49) Lactated Ringers (Lr 1000 Ml Iv Solution (08/06/22 23:00) Ondansetron Injection (Zofran Injectio (08/06/22 23:00) Covid 19 Inhouse Test (08/06/22 22:49) Influenza A And B By Pcr (08/06/22 22:49) Isolation Central Supply Req (08/06/22 22:49) Acetaminophen (08/06/22 23:02) Alcohol (08/06/22 23:02) Drug Screen Stat (Urine) (08/06/22 23:02) Scopolamine Patch (Transderm-Scop Patch) (08/06/22 23:15) Manual Differential (08/06/22 22:54) Lactic Acid Analyzer (08/06/22 23:15) Blood Culture (08/06/22 23:15) Urine Culture (08/06/22 23:15) Ed Iv/Invasive Line Start (08/06/22 23:15) Vital Signs Adult Sepsis Patie Q15M (08/06/22 23:15) Remove Rings In Anticipation O (08/06/22 23:15) Promethazine Injection (Phenergan Injec (08/06/22 23:30) Diphenhydramine Injection (Benadryl Inje (08/06/22 23:30) Ct Abdomen/Pelvis W (08/07/22 00:01) Iohexol Injection (Omnipaque 350 Mg/Ml 1 (08/07/22 00:30) Sodium Chloride Flush (Catheter Flush Sy (08/07/22 00:30) Ns (Ivpb) (Sodium Chloride 0.9% Ivpb Bag (08/07/22 00:30) Ed Iv/Invasive Line Start (08/07/22 00:27) Lactated Ringers (Lr 1000 Ml Iv Solution (08/07/22 00:30) Ondansetron Injection (Zofran Injectio (08/07/22 00:45) Medications Given in ED Current Medications Medications Dose Ordered Sig/Brandon Route Start Time Stop Time Status Last Admin Dose Admin Diphenhydramine HCl 25 mg ONCE ONCE IVP 08/06/22 23:30 08/06/22 23:31 DC 08/06/22 23:31 25 MG Iohexol 100 ml ONCE ONCE IV 08/07/22 00:30 08/07/22 00:31 DC 08/07/22 00:30 100 ML Lactated Ringer's 1,000 ml @ 0 mls/hr Q0M ONCE IV 08/06/22 23:00 08/06/22 23:01 DC 08/06/22 23:00 0 MLS/HR Lactated Ringer's 1,000 ml @ 0 mls/hr Q0M ONCE IV 08/07/22 00:30 08/07/22 00:31 DC 08/07/22 00:31 1,000 MLS/HR Ondansetron HCl 4 mg ONCE ONCE IVP 08/06/22 23:00 08/06/22 23:01 DC 08/06/22 23:00 4 MG Ondansetron HCl 4 mg ONCE ONCE IVP 08/07/22 00:45 08/07/22 00:46 DC 08/07/22 00:39 4 MG Promethazine HCl 50 mg ONCE ONCE IVP 08/06/22 23:30 08/06/22 23:31 DC 08/06/22 23:31 50 MG Scopolamine 1.5 mg ONCE ONCE TD 08/06/22 23:15 08/06/22 23:16 DC 08/06/22 23:06 1.5 MG Sodium Chloride 10 ml NEEDED PRN IV 08/07/22 00:30 08/07/22 00:30 10 ML Sodium Chloride 100 ml ONCE ONCE IV 08/07/22 00:30 08/07/22 00:31 DC 08/07/22 00:30 80 ML Vital Signs/I&O 08/06/22 22:47 Temp 37.1 Pulse 66 Resp 18 B/P (MAP) 131/90 (104) Pulse Ox 97 O2 Delivery Room Air Blood Pressure Mean: 104 Progress Progress Note : Progress Note GIVEN: -IV FLUIDS -ZOFRAN -PHENERGAN -BENADRYL -SCOPOLAMINE SEPSIS LAB ORDERED COVID AND FLU TESTING DONE. BOTH ARE NEGATIVE. ON ARRIVAL, PT HAD A SCANT AMOUNT OF EMESIS--MOSTLY CLEAR GASTRIC CONTENTS. NO FURTHER VOMITING AND NO DIARRHEA OR ANY BM DURING ER STAY PT VOIDED PRIOR TO DISMISSAL ABDOMEN IS NON-TENDER AT DISMISSAL PT IS CALM AT DISMISSAL WALKS UPRIGHT AND MOVES QUICKLY WITHOUT DIFFICULTY PT HAS ELEVATED WBC, BUT NO OTHER SIGNS OF SEPSIS--AFEBRILE, NORMAL VITALS, NORMAL LACTIC ACID, NO OBVIOUS INFECTION. REVIEWED PRIOR RECORDS, PT HAS HAD 2 PRIOR ER VISITS IN [place] FOR SIMILAR / SAME COMPLAINTS. REVIEWED MED RECONCILIATION--THE LIST OF MEDICATIONS THAT PT REPORTS SHE IS TAKING OR HAS BEEN PRESCRIBED, IS VERY DIFFERENT FROM LIST OF MEDICATIONS ON MED RECONCILIATION. MEDS HAVE BEEN PRESCRIBED BY MULTIPLE PROVIDERS. REVIEWED TEST RESULTS, ANTICIPATED COURSE, SYMPTOMATIC TREATMENT, DIET, NEED FOR FOLLOW UP AND RETURN PRECAUTIONS. PT WAS ADVISED TO STOP SMOKING MARIJUANA, THIS CAN CAUSE OR EXACERBATE HER SYMPTOMS PT REQUESTS RX FOR SCOPOLAMINE. PT STATES SHE HAS ZOFRAN AND PROMETHAZINE AT HOME. Diagnostic Imaging Comments CT ABDOMEN / PELVIS--PER [facility] VIA FAX AT 0140 -NON-DILATED BOWEL LOOPS -LEFT AND SIGMOID COLON ARE CONTRACTED, GIVING APPEARANCE OF SLIGHT WALL THICKENING, BUT NO SURROUNDING INFLAMMATION-CANNOT EXCLUDE COLITIS. -REMAINING BOWEL LOOPS ARE UNREMARKABLE -FATTY LIVER Reviewed: Reviewed by Me Departure Impression Primary Impression: Nausea & vomiting Additional Impressions: Tetrahydrocannabinol (THC) dependence Cannabis hyperemesis syndrome concurrent with and due to cannabis dependence Disposition: 01 HOME, SELF-CARE Condition: Improved Departure-Patient Inst. Decision time for Depature: 01:44 Referrals: NO,LOCAL PHYSICIAN (PCP/Family) Primary Care Physician Patient Instructions: Cannabis Hyperemesis Syndrome, Nausea and Vomiting, Adult Add. Discharge Instructions: CLEAR LIQUIDS--WATER, BROTH, JELLO, GATORADE TOMORROW IF YOU ARE BETTER, ADD BRATS DIET TO CLEAR LIQUIDS--BANANAS, RICE, APPLESAUCE, TOAST, SALTINES CONTINUE YOUR REGULAR MEDICATIONS PRESCRIBED, INCLUDING ZOFRAN AND PHENERGAN FOLLOW UP WITH YOUR DR IN 3-4 DAYS FOR FURTHER CARE, GO TO ER IF YOUR SYMPTOMS WORSEN All discharge instructions reviewed with patient and/or family. Voiced understanding. Scripts Scopolamine (Transderm-Scop) 1 Mg/3 Day Patch.td72 1 EACH TD Q72H, #3 PATCH Prov: SÁNCHEZ HOGAN DO 08/07/22 Pantoprazole Sodium (Protonix) 40 Mg Tablet.dr 40 MG PO DAILY, #15 TAB Prov: SÁNCHEZ HOGAN DO 08/07/22 Lactobacillus Acidophilus (Acidophilus Lactobacillus) 1 Billion Unit/Gram Powder 1 GM MC QID for 10 Days, #1 EA Prov: SÁNCHEZ HOGAN DO 08/07/22 SÁNCHEZ HOGAN DO Aug 06, 2022 23:03
[2022-08-06 23:15] LABS: ALBUMIN 4.4 GM/DL (3.2-4.5)
[2022-08-06] MEDS ORDERED: SCOPOLAMINE 1.5 MG (TRANSDERM-SCOP) PATCH TD ONE (23:15)
[2022-08-06 23:16] LABS: POTASSIUM 4.1 MMOL/L (3.6-5.0)
[2022-08-06 23:17] LABS: CALCIUM 9.9 MG/DL (8.5-10.1)
[2022-08-06 23:18] LABS: LYMPHOCYTES % (MANUAL) 11 %; MONOCYTES % (MANUAL) 3 %; NEUTROPHILS % (MANUAL) 86 %; RBC MORPH NORMAL; TOTAL PROTEIN 9.2 GM/DL (6.4-8.2)
[2022-08-06 23:20] LABS: BILIRUBIN,TOTAL 0.5 MG/DL (0.1-1.0)
[2022-08-06 23:22] LABS: CREATININE SERUM 0.82 MG/DL (0.60-1.30)
[2022-08-06 23:24] LABS: MAGNESIUM 1.9 MG/DL (1.6-2.4)
[2022-08-06] MEDS ORDERED: PROMETHAZINE INJ 25 MG/ML (PHENERGAN) AMP IVP ONE (23:30)
[2022-08-06] MEDS ORDERED: diphenhydrAMINE 50 MG/ML INJ (BENADRYL) IVP ONE (23:30)
[2022-08-06 23:31] LABS: ACETAMINOPHEN < 10 UG/ML (10-30)
[2022-08-07] MEDS ORDERED: IOHEXOL 350 MG/ML 100 ML (OMNIPAQUE 350) VIAL IV ONE (00:30)
[2022-08-07] MEDS ORDERED: CATHETER FLUSH 10 ML SYR IV PRN (00:30)
[2022-08-07] MEDS ORDERED: LACTATED RINGERS 1,000 ML IV ONE (00:30)
[2022-08-07] MEDS ORDERED: NS 100 ML (IVPB) BAG IV ONE (00:30)
[2022-08-07] MEDS ORDERED: ONDANSETRON 4 MG/2 ML (SDV) Z0FRAN IVP ONE (00:45)
[2022-08-07 01:22] LABS: BILIRUBIN,URINE NEGATIVE (NEGATIVE); CLARITY,URINE SL CLOUDY; COLOR,URINE YELLOW; GLUCOSE, URINE (UA) NEGATIVE (NEGATIVE); KETONES,URINE NEGATIVE (NEGATIVE); LEUKOCYTE ESTERASE ,URINE NEGATIVE (NEGATIVE); NITRITE,URINE NEGATIVE (NEGATIVE); PROTEIN,URINE 1+ (NEGATIVE)
[2022-08-07 01:30] LABS: BACTERIA,URINE NEGATIVE /HPF
[2022-08-07 01:42] LABS: AMPHETAMINE SCREEN, URINE NEGATIVE (NEGATIVE); BARBITURATE SCREEN URINE NEGATIVE (NEGATIVE); BENZODIAZEPINES SCREEN URINE NEGATIVE (NEGATIVE); CANNABINOID SCREEN, URINE POSITIVE (NEGATIVE); COCAINE SCREEN URINE NEGATIVE (NEGATIVE); METHADONE STAT NEGATIVE (NEGATIVE); OPIATE SCREEN URINE NEGATIVE (NEGATIVE); OXYCODONE STAT NEGATIVE (NEGATIVE); PROPOXYPHENE STAT NEGATIVE (NEGATIVE); TRICYCLIC ANTIDEPRESSANTS SCRE NEGATIVE (NEGATIVE)
[2022-08-07] MEDS ORDERED: PANT40TA2 PO (01:47)
[2022-08-07] MEDS ORDERED: LACT1POW8 MC (01:47)
[2022-08-07] MEDS ORDERED: SCOP1PAT10 TD (01:47)
[2022-08-07 01:50] VITALS: BP 140/90
--- NOTE | 2022-08-07 05:33 | Diagnostic Imaging Report ---
PROCEDURE: CT abdomen and pelvis with contrast. TECHNIQUE: Multiple contiguous axial images were obtained through the abdomen and pelvis after administration of intravenous contrast. Auto Exposure Controls were utilized during the CT exam to meet ALARA standards for radiation dose reduction. All CT scans use one or more of the following dose optimizing techniques: automated exposure control, MA and/or KvP adjustment based on patient size and exam type or iterative reconstruction. INDICATION: Abdominal pain, nausea, vomiting and diarrhea Lung bases are clear. There is a sliding hiatal hernia. There is mild fatty infiltration of liver. The gallbladder surgically absent. Portal vein is patent. Common duct is not dilated. Pancreas appears normal. Some calcified granulomas throughout the spleen. Adrenals are normal. There is a small cyst in lower pole of the left kidney. Right kidney appears normal. Aorta and IVC appear normal. No evidence of appendicitis. Small bowel is not dilated. Colon is decompressed. There are occlusion wires in the fallopian tubes. Ovaries are unremarkable. IMPRESSION: No acute abnormality seen in the abdomen or pelvis. There is hepatomegaly with mild hepatic steatosis. There is a hiatal hernia. Gallbladder surgically absent. Appendix is likely surgically absent. I agree with preliminary interpretation. Dictated by: Dictated on workstation # [id number]
== END 2022-08-07 01:53 | disposition home or self-care (01) ==
LOC: EDUNIT# 22:44 → ER 22:46
DX: R11.2 Nausea with vomiting, unspecified (principal); F12.20 Cannabis dependence, uncomplicated; K31.84 Gastroparesis; F17.210 Nicotine dependence, cigarettes, uncomplicated; F17.290 Nicotine dependence, other tobacco product, uncomplicated; Z20.822 Contact with and (suspected) exposure to COVID-19
CPT/HCPCS: 74177; 80053; 80306; 81000; 82150; 83605; 83690; 83735; 84703; 85007; 85027; 87040; 87077; 87088; 87636; 93041; 96361; 96374; 96375; 96376; 99284; G0480 ×2; 36415; 80320; 80329